=== PATIENT | female | born 1955 | race Caucasian/White ===

== ENCOUNTER 2017-07-25 19:24 | Emergency (ER) | payer OTHER ==
[2017-07-25 19:34] VITALS: BP 129/81; PULSE 75; TEMP 98.5; BMI 26.4
--- NOTE | 2017-07-25 19:37 | PDOC ---
Rapid Medical Evaluation Time Seen by Provider: 07/25/17 19:30 Medical Evaluation: 07/25/17 19:30 I have performed a brief in-person evaluation of this patient. The patient presents with a chief complaint of: R flank pain w/ nausea x several days. H/o DM, HTN, HLD, anxiety Pertinent physical exam findings:Stable w/ +ttp to R flank I have ordered the following:labs The patient will proceed to the ED for further evaluation. Discharge Disposition - Diagnosis Right flank pain - Referrals - Patient Instructions - Post Discharge Activity
[2017-07-25 20:03] LABS: BASO % 0.5 % (0-2.0); EOS % 2.5 % (0-4.5); HEMATOCRIT 33.6 % (32.4-45.2); HEMOGLOBIN 11.6 GM/dL (10.7-15.3); LYMPH % 44.6 % (8-40); MCH 32.4 pg (25.7-33.7); MCHC 34.5 g/dl (32.0-36.0); MEAN CELL VOLUME 93.9 fl (80-96); MEAN PLT VOLUME 7.7 fl (7.5-11.1); MONO % 6.3 % (3.8-10.2); NEUT % 46.1 % (42.8-82.8); PLATELET COUNT 184 K/MM3 (134-434); RBC 3.58 M/mm3 (3.60-5.2); RDW 12.7 % (11.6-15.6); WHITE BLOOD COUNT 6.7 K/mm3 (4.0-10.0)
[2017-07-25 20:14] LABS: URINE APPEARANCE CLOUDY; URINE BILIRUBIN NEGATIVE (<2.0 mg/dL); URINE BLOOD 1+ (NEGATIVE); URINE COLOR YELLOW; URINE GLUCOSE (UA) NEGATIVE (NEGATIVE); URINE KETONE NEGATIVE (NEGATIVE); URINE NITRITE NEGATIVE (NEGATIVE); URINE PROTEIN NEGATIVE (NEGATIVE); URINE UROBILINOGEN NEGATIVE mg/dL (0.2-1.0)
[2017-07-25 20:22] LABS: URINE LEUK ESTERASE 3+ (NEGATIVE)
[2017-07-25 20:32] LABS: EPI CELLS MODERATE /HPF (FEW); URINE MUCUS RARE
[2017-07-25 20:56] LABS: ALBUMIN 4.3 g/dl (3.4-5.0); ALK PHOS 65 U/L (45-117); ANION GAP 5 (8-16); BILIRUBIN,TOTAL 0.2 mg/dL (0.2-1.0); BLOOD UREA NITROGEN 15 mg/dL (7-18); CALCIUM 8.4 mg/dL (8.5-10.1); CHLORIDE 106 mmol/L (98-107); CO2 26 mmol/L (21-32); CREATININE 0.7 mg/dL (0.55-1.02); GLUCOSE,RANDOM 189 mg/dL (74-106); POTASSIUM 4.5 mmol/L (3.5-5.1); SGOT/AST 12 U/L (15-37); SGPT/ALT 22 U/L (12-78); SODIUM 137 mmol/L (136-145); TOT PROT 7.6 g/dl (6.4-8.2)
--- NOTE | 2017-07-25 21:18 | PDOC ---
History of Present Illness - General History Source: Patient <Prieto Barboza - Last Filed: 07/25/17 21:22> - General History Source: Patient Exam Limitations: No Limitations - History of Present Illness Initial Comments: 07/25/17 21:27 The patient is a 62 year old female with a significant PMH of HTN diabetes, and hyperlipidemia who presents to the emergency department with right flank pain beginning approximately 4 days ago. The patient reports also notes associated nausea and mild dysuria with her right flank pain. She denies taking any medications for pain. The patient denies fevers or chills. She denies hematuria. The patient denies vomit, diarrhea and constipation. Denies chest pain, shortness of breath, headache and dizziness. Denies urinary frequency and urgency. Allergies: Amoxicillin Past surgical history: None reported. Social history: No reported cigarette, alcohol, or drug use. PCP: None reported. <Jae Linares - Last Filed: 07/25/17 21:27> - General Chief Complaint: Pain Stated Complaint: PAIN Time Seen by Provider: 07/25/17 19:30 Past History - Past Medical History COPD: No Diabetes: Yes HTN: Yes Hypercholesterolemia: Yes Psychiatric Problems: Yes - Suicide/Smoking/Psychosocial Hx Smoking History: Never smoked <KrismorganPrieto - Last Filed: 07/25/17 21:22> <Jae Linares - Last Filed: 07/25/17 21:27> - Past Medical History Allergies/Adverse Reactions: Allergies Allergy/AdvReac Type Severity Reaction Status Date / Time amoxicillin AdvReac Verified 07/25/17 19:34 Home Medications: Ambulatory Orders levoFLOXacin [Levaquin -] 500 mg PO DAILY #7 tablet 07/25/17 Review of Systems - Review of Systems Able to Perform ROS?: Yes Comments:: 07/25/17 21:27 CONSTITUTIONAL: Absent: fever, chills, diaphoresis, generalized weakness, malaise, loss of appetite HEENT: Absent: rhinorrhea, nasal congestion, throat pain, throat swelling, difficulty swallowing, mouth swelling, ear pain, eye pain, visual Changes CARDIOVASCULAR: Absent: chest pain, syncope, palpitations, irregular heart rate, lightheadedness , peripheral edema RESPIRATORY: Absent: cough, shortness of breath, dyspnea with exertion, orthopnea, wheezing, stridor, hemoptysis GASTROINTESTINAL: (+) Nausea. Absent: abdominal pain, abdominal distension, vomiting, diarrhea, constipation, melena, hematochezia GENITOURINARY: (+) Mild dysuria. Absent: dysuria, frequency, urgency, hesitancy, hematuria, flank pain, genital pain MUSCULOSKELETAL: (+) Right flank pain. Absent: myalgia, arthralgia, joint swelling SKIN: Absent: rash, itching, pallor HEMATOLOGIC/IMMUNOLOGIC: Absent: easy bleeding, easy bruising, lymphadenopathy, frequent infections ENDOCRINE: Absent: unexplained weight gain, unexplained weight loss, heat intolerance, cold intolerance NEUROLOGIC: Absent: headache, focal weakness or paresthesias, dizziness, unsteady gait, seizure, mental status changes, bladder or bowel incontinence PSYCHIATRIC: Absent: anxiety, depression, suicidal or homicidal ideation, hallucinations. <Jae Linares - Last Filed: 07/25/17 21:27> *Physical Exam - Vital Signs Last Vital Signs Temp Pulse Resp BP Pulse Ox 98.5 F 75 18 129/81 99 07/25/17 19:31 07/25/17 19:31 07/25/17 19:31 07/25/17 19:31 07/25/17 19:31 <Prieto Barboza - Last Filed: 07/25/17 21:22> - Vital Signs Last Vital Signs Temp Pulse Resp BP Pulse Ox 98.5 F 75 18 129/81 99 07/25/17 19:31 07/25/17 19:31 07/25/17 19:31 07/25/17 19:31 07/25/17 19:31 - Physical Exam Comments: 07/25/17 21:27 GENERAL: Well developed, well nourished. Awake and alert. No acute distress. HEENT: Normocephalic, atraumatic. PERRLA, EOMI. No conjunctival pallor. Sclera are non- icteric. Moist mucous membranes. Oropharynx is clear. NECK: Supple. Full ROM. No JVD. Carotid pulses 2+ and symmetric, without bruits. No thyromegaly. No lymphadenopathy. CARDIOVASCULAR: Regular rate and rhythm. No murmurs, rubs, or gallops. Distal pulses are 2+ and symmetric. PULMONARY: No evidence of respiratory distress. Lungs clear to auscultation bilaterally. No wheezing, rales or rhonchi. ABDOMINAL: Soft. Non-tender. Non-distended. No rebound or guarding. No organomegaly. Normoactive bowel sounds. MUSCULOSKELETAL: (+) Mild right sided CVA tenderness Normal range of motion at all joints. No bony deformities or tenderness. EXTREMITIES: No cyanosis. No clubbing. No edema. No calf tenderness. SKIN: Warm and dry. Normal capillary refill. No rashes. No jaundice. NEUROLOGICAL: Alert, awake, appropriate. Cranial nerves 2-12 intact. No deficits to light touch and temperature in face, upper extremities and lower extremities. No motor deficits in the in face, upper extremities and lower extremities. Normoreflexic in the upper and lower extremities. Normal speech. Toes are downgoing bilaterally. Gait is normal without ataxia. PSYCHIATRIC: Cooperative. Good eye contact. Appropriate mood and affect. <Jae Linares - Last Filed: 07/25/17 21:27> ED Treatment Course - LABORATORY CBC & Chemistry Diagram: 07/25/17 19:45 07/25/17 19:45 - ADDITIONAL ORDERS Additional order review: Laboratory Results 07/25/17 07/25/17 20:02 19:45 Sodium 137 Potassium 4.5 Chloride 106 Carbon Dioxide 26 Anion Gap 5 L BUN 15 Creatinine 0.7 Creat Clearance w eGFR > 60 Random Glucose 189 H Calcium 8.4 L Total Bilirubin 0.2 AST 12 L ALT 22 Alkaline Phosphatase 65 Total Protein 7.6 Albumin 4.3 Urine Color Yellow Urine Appearance Cloudy Urine pH 5.0 Ur Specific [place] 1.016 Urine Protein Negative Urine Glucose (UA) Negative Urine Ketones Negative Urine Blood 1+ H Urine Nitrite Negative Urine Bilirubin Negative Urine Urobilinogen Negative Ur Leukocyte Esterase 3+ H Urine WBC (Auto) 120 Urine RBC (Auto) 6 Ur Epithelial Cells Moderate Urine Mucus Rare 07/25/17 19:45 RBC 3.58 L MCV 93.9 MCHC 34.5 RDW 12.7 MPV 7.7 Neutrophils % 46.1 Lymphocytes % 44.6 H Monocytes % 6.3 Eosinophils % 2.5 Basophils % 0.5 <Prieto Barboza - Last Filed: 07/25/17 21:22> - LABORATORY CBC & Chemistry Diagram: 07/25/17 19:45 07/25/17 19:45 - ADDITIONAL ORDERS Additional order review: Laboratory Results 07/25/17 07/25/17 20:02 19:45 Sodium 137 Potassium 4.5 Chloride 106 Carbon Dioxide 26 Anion Gap 5 L BUN 15 Creatinine 0.7 Creat Clearance w eGFR > 60 Random Glucose 189 H Calcium 8.4 L Total Bilirubin 0.2 AST 12 L ALT 22 Alkaline Phosphatase 65 Total Protein 7.6 Albumin 4.3 Urine Color Yellow Urine Appearance Cloudy Urine pH 5.0 Ur Specific [place] 1.016 Urine Protein Negative Urine Glucose (UA) Negative Urine Ketones Negative Urine Blood 1+ H Urine Nitrite Negative Urine Bilirubin Negative Urine Urobilinogen Negative Ur Leukocyte Esterase 3+ H Urine WBC (Auto) 120 Urine RBC (Auto) 6 Ur Epithelial Cells Moderate Urine Mucus Rare 07/25/17 19:45 RBC 3.58 L MCV 93.9 MCHC 34.5 RDW 12.7 MPV 7.7 Neutrophils % 46.1 Lymphocytes % 44.6 H Monocytes % 6.3 Eosinophils % 2.5 Basophils % 0.5 <Jae Linares - Last Filed: 07/25/17 21:27> Medical Decision Making - Medical Decision Making 07/25/17 21:22 Dr. Barboza: The scribe's documentation has been prepared under my direction and personally reviewed by me in its entirery. I confirm that the note above accurately reflects all work, treatment, procedures, and medical decision making performed by me. Pt found to have UTI. Pt afebrile. Rx Levaquin 500mg PO QD Rx sent to pharmacy <Prieto Barboza - Last Filed: 07/25/17 21:22> *DC/Admit/Observation/Transfer - Discharge Dispostion Admit: No <Prieto Barboza - Last Filed: 07/25/17 21:22> - Attestations Scribe Attestion: 07/25/17 21:27 Documentation prepared by Jae Linares, acting as medical representative for Prieto Barboza DO. <Jae Linares - Last Filed: 07/25/17 21:27> Diagnosis at time of Disposition: Right flank pain, UTI (urinary tract infection) - Discharge Dispostion Disposition: HOME Condition at time of disposition: Stable - Prescriptions Prescriptions: levoFLOXacin [Levaquin -] 500 mg PO DAILY #7 tablet - Referrals Referrals: Deborah Escalona MD [Staff Physician] - Sergo Mota MD [Staff Physician] - - Patient Instructions Printed Discharge Instructions: DI for Urinary Tract Infection (UTI)
== END 2017-07-25 21:42 | disposition home or self-care (01) ==
LOC: JER 19:24
DX: R10.31 Right lower quadrant pain (principal); N39.0 Urinary tract infection, site not specified; I10 Essential (primary) hypertension; E11.9 Type 2 diabetes mellitus without complications; E78.5 Hyperlipidemia, unspecified
CPT/HCPCS: 36415; 80053; 81003; 81015; 85025; 99282-25

== ENCOUNTER 2021-06-11 04:45 | Inpatient (IN) | payer OTHER ==
[2021-06-11] MEDS ORDERED: ONDANSETRON 4 MG/2 ML VIAL IVPUSH ONE (07:40)
[2021-06-11] MEDS ORDERED: SODIUM CHLORIDE 0.9% 500 ML INFUS.BAG IV ONE ×2 (07:41→10:04)
[2021-06-11] MEDS ORDERED: FAMOTIDINE 20 MG/50 ML IVPB 20 MG/50 ML MG IVPB ONE ×2 (07:46→07:52)
[2021-06-11] MEDS ORDERED: ONDANSETRON 4 MG/2 ML VIAL ONE (07:52)
[2021-06-11 09:26] LABS: EPI CELLS >36 /uL (0-25.1); HYALINE CASTS 0 /uL (0-3.1); URINE APPEARANCE CLEAR; URINE BACTERIA 287 /uL (0-1359); URINE BILIRUBIN NEGATIVE (NEGATIVE); URINE COLOR YELLOW; URINE GLUCOSE (UA) TRACE (NEGATIVE); URINE KETONE TRACE (NEGATIVE); URINE LEUK ESTERASE 1+ (NEGATIVE); URINE NITRITE NEGATIVE (NEGATIVE); URINE PROTEIN TRACE (NEGATIVE); URINE RBC 12 /uL (0-23.9); URINE UROBILINOGEN 0.2 mg/dL (0.2-1.0); URINE WBC 60 /uL (0-25.8)
[2021-06-11 09:28] LABS: BASO % 0.4 % (0-2.0); EOS % 0.8 % (0-4.5); HEMATOCRIT 35.3 % (32.4-45.2); HEMOGLOBIN 12.4 GM/dL (10.7-15.3); LYMPH % 23.5 % (8-40); MCH 32.3 pg (25.7-33.7); MEAN CELL VOLUME 92.4 fl (80-96); MEAN PLT VOLUME 7.3 fl (7.5-11.1); MONO % 5.9 % (3.8-10.2); NEUT % 69.4 % (42.8-82.8); PLATELET COUNT 206 10^3/uL (134-434); RBC 3.82 M/mm3 (3.60-5.2); RDW 13.1 % (11.6-15.6); WHITE BLOOD COUNT 5.8 K/mm3 (4.0-10.0)
[2021-06-11 09:59] LABS: BLOOD UREA NITROGEN 12.8 mg/dL (7-18)
[2021-06-11 10:00] LABS: ALBUMIN 4.4 g/dl (3.4-5.0)
[2021-06-11 10:02] LABS: CREATININE 0.9 mg/dL (0.55-1.3)
[2021-06-11 10:04] LABS: BILIRUBIN,TOTAL 0.4 mg/dL (0.2-1); TOT PROT 8.5 g/dl (6.4-8.2)
[2021-06-11 16:38] LABS: CHLORIDE 100 mmol/L (98-107); SODIUM 126 mmol/L (136-145)
[2021-06-11 16:40] LABS: ALBUMIN 3.6 g/dl (3.4-5.0); BLOOD UREA NITROGEN 10.8 mg/dL (7-18); CALCIUM 8.2 mg/dL (8.5-10.1); CO2 18 mmol/L (21-32); GLUCOSE,RANDOM 173 mg/dL (74-106)
[2021-06-11 16:44] LABS: CREATININE 0.8 mg/dL (0.55-1.3); SGOT/AST 24 U/L (15-37); SGPT/ALT 25 U/L (13-61)
[2021-06-11 16:46] LABS: ALK PHOS 77 U/L (45-117); BILIRUBIN,TOTAL 0.4 mg/dL (0.2-1)
[2021-06-11 16:49] LABS: ANION GAP 8 MMOL/L (8-16)
[2021-06-11] MEDS ORDERED: SODIUM ZIRCONIUM CYCLOSILICATE (LOKELMA) 5 GM PACKET ONE (18:33)
[2021-06-11] MEDS: SODIUM ZIRCONIUM CYCLOSILICATE (LOKELMA) 5 GM PACKET PO SCH (18:47)
[2021-06-11] MEDS: SODIUM CHLORIDE 1,000 ML IV SCH (18:47)
[2021-06-12 01:52] VITALS: BMI 24.7
[2021-06-12] MEDS: INSULIN SLIDING SCALE (NOVOLOG) 1 VIAL SQ SCH ×4 (07:24→21:18)
[2021-06-12 09:33] LABS: BASO % 0.5 % (0-2.0); EOS % 2.1 % (0-4.5); HEMATOCRIT 33.1 % (32.4-45.2); HEMOGLOBIN 11.7 GM/dL (10.7-15.3); LYMPH % 37.8 % (8-40); MCH 32.4 pg (25.7-33.7); MCHC 35.4 g/dl (32.0-36.0); MEAN CELL VOLUME 91.5 fl (80-96); MEAN PLT VOLUME 7.1 fl (7.5-11.1); MONO % 8.7 % (3.8-10.2); NEUT % 50.9 % (42.8-82.8); PLATELET COUNT 204 10^3/uL (134-434); RBC 3.61 M/mm3 (3.60-5.2); RDW 12.9 % (11.6-15.6); WHITE BLOOD COUNT 4.3 K/mm3 (4.0-10.0)
[2021-06-12 09:52] LABS: CREATININE 0.9 mg/dL (0.55-1.3)
[2021-06-12 09:54] LABS: BILIRUBIN,TOTAL 0.4 mg/dL (0.2-1); TOT PROT 7.4 g/dl (6.4-8.2)
[2021-06-12 09:58] LABS: BLOOD UREA NITROGEN 11.4 mg/dL (7-18)
[2021-06-12] MEDS: SODIUM ZIRCONIUM CYCLOSILICATE (LOKELMA) 5 GM PACKET PO SCH (10:02)
[2021-06-12] MEDS: HEPARIN NA (PORCINE) 5,000 UNITS/ML 1ML VIAL SQ SCH ×2 (10:03→21:18)
[2021-06-12 10:07] LABS: CALCIUM 9.3 mg/dL (8.5-10.1)
[2021-06-12 10:08] LABS: ALBUMIN 3.9 g/dl (3.4-5.0)
[2021-06-12] MEDS ORDERED: INSULIN (NOVOLOG) ASPART 100 UNITS/ML 10ML VIAL ONE (12:02)
[2021-06-12] MEDS: SODIUM CHLORIDE 1,000 ML IV SCH (15:08)
[2021-06-13] MEDS: INSULIN SLIDING SCALE (NOVOLOG) 1 VIAL SQ SCH ×2 (06:22→11:21)
[2021-06-13] MEDS: HEPARIN NA (PORCINE) 5,000 UNITS/ML 1ML VIAL SQ SCH (09:15)
[2021-06-13] MEDS ORDERED: INSULIN (NOVOLOG) ASPART 100 UNITS/ML 10ML VIAL ONE (11:21)
[2021-06-13 14:02] VITALS: BP 141/78; PULSE 73; TEMP 98.6
== END 2021-06-13 15:01 | disposition home or self-care (01) | DRG 422 ==
LOC: JER 04:45 → JERBED 12:31 → J6S 20:40
PROVIDERS: ADMIT Internal Medicine; ATTEND Internal Medicine
DX: E87.1 Hypo-osmolality and hyponatremia (principal); R11.2 Nausea with vomiting, unspecified; R63.0 Anorexia; R10.31 Right lower quadrant pain; R10.32 Left lower quadrant pain; E11.9 Type 2 diabetes mellitus without complications; E03.9 Hypothyroidism, unspecified; E78.00 Pure hypercholesterolemia, unspecified; I10 Essential (primary) hypertension; N28.1 Cyst of kidney, acquired; E86.1 Hypovolemia; Z68.24 Body mass index [BMI] 24.0-24.9, adult
CPT/HCPCS: 36415; 74177-TC; 80053; 81003; 82436; 82533; 82570; 82962; 83690; 83930; 83935; 84132; 84133; 84300; 84439; 84443; 84484; 85025; 87086; 93005; 93010; 99284-25; C9803-CS; J1644; Q9967; U0003; U0005

== ENCOUNTER 2021-07-02 15:50 | Inpatient (IN) | payer OTHER ==
[2021-07-02 17:56] LABS: BASO % 0.4 % (0-2.0); EOS % 2.3 % (0-4.5); HEMATOCRIT 31.6 % (32.4-45.2); HEMOGLOBIN 10.9 GM/dL (10.7-15.3); LYMPH % 32.4 % (8-40); MCH 31.4 pg (25.7-33.7); MCHC 34.3 g/dl (32.0-36.0); MEAN CELL VOLUME 91.6 fl (80-96); MEAN PLT VOLUME 6.9 fl (7.5-11.1); MONO % 6.6 % (3.8-10.2); NEUT % 58.3 % (42.8-82.8); PLATELET COUNT 242 10^3/uL (134-434); RBC 3.45 M/mm3 (3.60-5.2); WHITE BLOOD COUNT 6.3 K/mm3 (4.0-10.0)
[2021-07-02 18:18] LABS: BLOOD UREA NITROGEN 10.8 mg/dL (7-18); CALCIUM 8.8 mg/dL (8.5-10.1)
[2021-07-02 18:19] LABS: ALBUMIN 3.8 g/dl (3.4-5.0); MAGNESIUM 1.6 mg/dL (1.8-2.4)
[2021-07-02 18:23] LABS: BILIRUBIN,TOTAL 0.2 mg/dL (0.2-1); CREATININE 0.9 mg/dL (0.55-1.3); TOT PROT 7.4 g/dl (6.4-8.2)
[2021-07-02] MEDS ORDERED: SODIUM CHLORIDE 0.9% 500 ML INFUS.BAG IV ONE (18:41)
[2021-07-02] MEDS ORDERED: MAG HYDROX/AL HYDROX/SIMETH 30 ML UNIT-DOSE CUP PO ONE (18:44)
[2021-07-02] MEDS ORDERED: PANTOPRAZOLE SODIUM 40 MG VIAL IVPUSH ONE (18:44)
[2021-07-02] MEDS ORDERED: FAMOTIDINE 20 MG/50 ML IVPB 20 MG/50 ML MG IVPB ONE ×2 (18:44→19:18)
[2021-07-02] MEDS ORDERED: ACETAMINOPHEN 1000 MG/100 ML BAG IVPB ONE (18:45)
[2021-07-02] MEDS ORDERED: ASPIRIN 81 MG CHEWABLE TABLETS PO ONE (18:45)
[2021-07-02] MEDS ORDERED: ASPIRIN 81 MG CHEWABLE TABLETS ONE (19:18)
[2021-07-02] MEDS ORDERED: MAG HYDROX/AL HYDROX/SIMETH 30 ML UNIT-DOSE CUP ONE (19:18)
[2021-07-02] MEDS ORDERED: ACETAMINOPHEN INJECTION 100 ML IVPB ONE (19:18)
[2021-07-02] MEDS ORDERED: PANTOPRAZOLE SODIUM 40 MG VIAL ONE (19:18)
[2021-07-02 20:00] LABS: EPI CELLS >36 /uL (0-25.1); HYALINE CASTS 1 /uL (0-3.1); PH,URINE 7.5 (5.0-8.0); URINE APPEARANCE CLEAR; URINE BACTERIA 239 /uL (0-1359); URINE BILIRUBIN NEGATIVE (NEGATIVE); URINE COLOR YELLOW; URINE GLUCOSE (UA) NEGATIVE (NEGATIVE); URINE KETONE NEGATIVE (NEGATIVE); URINE LEUK ESTERASE 2+ (NEGATIVE); URINE NITRITE NEGATIVE (NEGATIVE); URINE PROTEIN NEGATIVE (NEGATIVE); URINE RBC 6 /uL (0-23.9); URINE UROBILINOGEN 0.2 mg/dL (0.2-1.0); URINE WBC 94 /uL (0-25.8)
[2021-07-02] MEDS ORDERED: CEFTRIAXONE 1 GM in DEXTROSE 5%-WATER - 100 ML IVPB ONE (20:23)
[2021-07-02] MEDS ORDERED: CEFTRIAXONE 1 GM/50 ML BAG ONE (22:17)
[2021-07-03 03:12] VITALS: BMI 24.7
[2021-07-03] MEDS: LEVOTHYROXINE NA 25 MCG TABLET (FP) PO SCH (06:27)
[2021-07-03] MEDS: INSULIN SLIDING SCALE (NOVOLOG) 1 VIAL SQ SCH ×4 (06:27→22:14)
[2021-07-03 09:13] LABS: BASO % 0.5 % (0-2.0); EOS % 2.4 % (0-4.5); HEMATOCRIT 33.5 % (32.4-45.2); HEMOGLOBIN 11.5 GM/dL (10.7-15.3); LYMPH % 31.4 % (8-40); MCH 31.6 pg (25.7-33.7); MCHC 34.4 g/dl (32.0-36.0); MEAN CELL VOLUME 91.9 fl (80-96); MEAN PLT VOLUME 6.8 fl (7.5-11.1); MONO % 6.5 % (3.8-10.2); NEUT % 59.2 % (42.8-82.8); PLATELET COUNT 251 10^3/uL (134-434); RBC 3.65 M/mm3 (3.60-5.2); RDW 12.3 % (11.6-15.6); WHITE BLOOD COUNT 6.2 K/mm3 (4.0-10.0)
[2021-07-03] MEDS: metFORMIN HCL 500 MG TABLET (FP) PO SCH ×2 (09:34→22:14)
[2021-07-03] MEDS: ENALAPRIL MALEATE 10 MG TABLET PO SCH (09:34)
[2021-07-03] MEDS: PANTOPRAZOLE 40 MG TABLET PO SCH (09:34)
[2021-07-03] MEDS: sitaGLIPtin PHOSPHATE 50 MG TABLET PO SCH (09:34)
[2021-07-03] MEDS: carBAMazepine 200 MG TABLET PO SCH ×2 (09:34→22:14)
[2021-07-03] MEDS: HEPARIN NA (PORCINE) 5,000 UNITS/ML 1ML VIAL SQ SCH ×2 (09:34→22:14)
[2021-07-03 09:35] LABS: CALCIUM 8.6 mg/dL (8.5-10.1)
[2021-07-03 09:36] LABS: ALBUMIN 3.7 g/dl (3.4-5.0); BLOOD UREA NITROGEN 9.4 mg/dL (7-18)
[2021-07-03 09:40] LABS: CREATININE 0.9 mg/dL (0.55-1.3)
[2021-07-03 09:42] LABS: BILIRUBIN,TOTAL 0.3 mg/dL (0.2-1); TOT PROT 7.7 g/dl (6.4-8.2)
[2021-07-03] MEDS ORDERED: ACETAMINOPHEN 325 MG TABLET (FP) ONE (13:04)
[2021-07-03] MEDS ORDERED: ACETAMINOPHEN 325 MG TABLET (FP) PO PRN (13:07)
[2021-07-03] MEDS: ATORVASTATIN CA 40 MG TABLET (FP) PO SCH (22:14)
[2021-07-04] MEDS: INSULIN SLIDING SCALE (NOVOLOG) 1 VIAL SQ SCH ×4 (06:51→21:37)
[2021-07-04] MEDS: LEVOTHYROXINE NA 25 MCG TABLET (FP) PO SCH (06:52)
[2021-07-04] MEDS: sitaGLIPtin PHOSPHATE 50 MG TABLET PO SCH (10:19)
[2021-07-04] MEDS: PANTOPRAZOLE 40 MG TABLET PO SCH (10:19)
[2021-07-04] MEDS: carBAMazepine 200 MG TABLET PO SCH ×2 (10:19→21:37)
[2021-07-04] MEDS: metFORMIN HCL 500 MG TABLET (FP) PO SCH ×2 (10:19→21:37)
[2021-07-04] MEDS: HEPARIN NA (PORCINE) 5,000 UNITS/ML 1ML VIAL SQ SCH ×2 (10:19→21:36)
[2021-07-04] MEDS: ENALAPRIL MALEATE 10 MG TABLET PO SCH (10:21)
[2021-07-04] MEDS: ATORVASTATIN CA 40 MG TABLET (FP) PO SCH (21:37)
[2021-07-05] MEDS: INSULIN SLIDING SCALE (NOVOLOG) 1 VIAL SQ SCH ×3 (06:04→17:11)
[2021-07-05] MEDS: LEVOTHYROXINE NA 25 MCG TABLET (FP) PO SCH (06:04)
[2021-07-05] MEDS: PANTOPRAZOLE 40 MG TABLET PO SCH (09:11)
[2021-07-05] MEDS: HEPARIN NA (PORCINE) 5,000 UNITS/ML 1ML VIAL SQ SCH (09:11)
[2021-07-05] MEDS: carBAMazepine 200 MG TABLET PO SCH (09:11)
[2021-07-05] MEDS: sitaGLIPtin PHOSPHATE 50 MG TABLET PO SCH (09:11)
[2021-07-05] MEDS: metFORMIN HCL 500 MG TABLET (FP) PO SCH (09:11)
[2021-07-05] MEDS: ENALAPRIL MALEATE 10 MG TABLET PO SCH (09:12)
[2021-07-05 09:35] LABS: BASO % 0.5 % (0-2.0); EOS % 1.6 % (0-4.5); HEMATOCRIT 32.5 % (32.4-45.2); HEMOGLOBIN 11.5 GM/dL (10.7-15.3); LYMPH % 19.7 % (8-40); MCH 31.9 pg (25.7-33.7); MCHC 35.3 g/dl (32.0-36.0); MEAN CELL VOLUME 90.3 fl (80-96); MONO % 6.5 % (3.8-10.2); NEUT % 71.7 % (42.8-82.8); PLATELET COUNT 245 10^3/uL (134-434); RDW 13.1 % (11.6-15.6); WHITE BLOOD COUNT 5.3 K/mm3 (4.0-10.0)
[2021-07-05 09:52] LABS: CALCIUM 8.3 mg/dL (8.5-10.1)
[2021-07-05 09:53] LABS: ALBUMIN 3.6 g/dl (3.4-5.0)
[2021-07-05 09:56] LABS: CREATININE 0.9 mg/dL (0.55-1.3)
[2021-07-05 09:58] LABS: BILIRUBIN,TOTAL 0.4 mg/dL (0.2-1); TOT PROT 7.3 g/dl (6.4-8.2)
[2021-07-05 15:20] VITALS: BP 137/75; PULSE 75; TEMP 98.4
[2021-07-05] MEDS ORDERED: SODIUM CHLORIDE 1 GM TABLET PO SCH (17:00)
== END 2021-07-05 18:49 | disposition home or self-care (01) | DRG 425 ==
LOC: JER 15:50 → JERBED 18:41 → J4S 07-03 02:21 → OBSVTOIN 07-03 03:45
PROVIDERS: ADMIT Internal Medicine; ATTEND Internal Medicine
DX: E87.1 Hypo-osmolality and hyponatremia (principal); U07.1 COVID-19; Z79.84 Long term (current) use of oral hypoglycemic drugs; E87.5 Hyperkalemia; J44.1 Chronic obstructive pulmonary disease with (acute) exacerbation; R07.89 Other chest pain; Z79.4 Long term (current) use of insulin; E11.9 Type 2 diabetes mellitus without complications; N39.0 Urinary tract infection, site not specified; E78.5 Hyperlipidemia, unspecified; I10 Essential (primary) hypertension; E03.9 Hypothyroidism, unspecified; R42 Dizziness and giddiness; N28.1 Cyst of kidney, acquired
CPT/HCPCS: 36415; 71045-TC-FY; 80053; 81003; 82728; 82962; 83690; 83735; 84100; 84484; 85025; 85379; 86140; 87086; 93005; 93010; 99285-25; C9803-CS; G0378; J1644; U0003; U0005

== ENCOUNTER 2023-09-29 01:00 | Inpatient (IN) | payer OTHER ==
[2023-09-29 01:50] LABS: BASO % 0.5 % (0-2.0); EOS % 2.2 % (0-4.5); HEMATOCRIT 31.9 % (32.4-45.2); HEMOGLOBIN 11.4 GM/dL (10.7-15.3); LYMPH % 40.4 % (8-40); MCH 32.4 pg (25.7-33.7); MCHC 35.8 g/dl (32.0-36.0); MEAN CELL VOLUME 90.5 fl (80-96); MEAN PLT VOLUME 6.5 fl (7.5-11.1); MONO % 7.7 % (3.8-10.2); NEUT % 49.2 % (42.8-82.8); PLATELET COUNT 203 10^3/uL (134-434); RBC 3.52 M/mm3 (3.60-5.2); RDW 12.8 % (11.6-15.6); WHITE BLOOD COUNT 7.4 K/mm3 (4.0-10.0)
[2023-09-29] MEDS ORDERED: ACETAMINOPHEN INJECTION 100 ML IVPB ONE (01:50)
[2023-09-29] MEDS ORDERED: ONDANSETRON 4 MG/2 ML VIAL ONE (01:50)
[2023-09-29] MEDS: ACETAMINOPHEN 1000 MG/100 ML BAG IVPB ONE (01:58)
[2023-09-29] MEDS: SODIUM CHLORIDE 0.9% 500 ML INFUS.BAG IV ONE ×2 (01:58→04:06)
[2023-09-29] MEDS: ONDANSETRON 4 MG/2 ML VIAL IVPUSH ONE (01:59)
[2023-09-29 02:09] LABS: EPI CELLS 13 /uL (0-25.1); HYALINE CASTS 0 /uL (0-3.1); PH,URINE 7.5 (5.0-8.0); URINE APPEARANCE CLEAR; URINE BACTERIA 64 /uL (0-1359); URINE BILIRUBIN NEGATIVE (NEGATIVE); URINE COLOR YELLOW; URINE GLUCOSE (UA) NEGATIVE (NEGATIVE); URINE KETONE NEGATIVE (NEGATIVE); URINE LEUK ESTERASE 1+ (NEGATIVE); URINE NITRITE NEGATIVE (NEGATIVE); URINE PROTEIN NEGATIVE (NEGATIVE); URINE RBC 7 /uL (0-23.9); URINE WBC 42 /uL (0-25.8)
[2023-09-29 02:48] LABS: INR 0.95 (0.83-1.09); PROTHROMBIN TIME (PATIENT) 10.7 SEC (9.7-13.0)
[2023-09-29 02:49] LABS: ALBUMIN 3.9 g/dl (3.4-5.0); CALCIUM 8.9 mg/dL (8.5-10.1)
[2023-09-29 02:50] LABS: MAGNESIUM 1.2 mg/dL (1.8-2.4)
[2023-09-29 02:51] LABS: ACTIVATED PTT 30.8 SECONDS (25.2-36.5)
[2023-09-29 02:52] LABS: CREATININE 1.2 mg/dL (0.55-1.3)
[2023-09-29 02:54] LABS: BILIRUBIN,TOTAL 0.3 mg/dL (0.2-1); TOT PROT 7.4 g/dl (6.4-8.2)
[2023-09-29] MEDS ORDERED: MAGNESIUM SULFATE IN WATER 2 GM/50 ML IVPB IVPB ONE (03:04)
[2023-09-29] MEDS: MAGNESIUM SULF 50% (8.12 MEQ/2 ML-1 GM VIAL) IVPB ONE ×2 (03:15→14:22)
[2023-09-29 03:16] LABS: LACTIC ACID 3.4 mmol/L (0.4-2.0)
[2023-09-29 05:27] LABS: LACTIC ACID 2.9 mmol/L (0.4-2.0)
[2023-09-29 07:24] LABS: LACTIC ACID 3.7 mmol/L (0.4-2.0)
[2023-09-29 09:35] VITALS: BMI 25.1
[2023-09-29 10:16] LABS: POTASSIUM 4.4 mmol/L (3.5-5.1)
[2023-09-29 10:17] LABS: CALCIUM 8.7 mg/dL (8.5-10.1)
[2023-09-29 10:18] LABS: BLOOD UREA NITROGEN 19.1 mg/dL (7-18)
[2023-09-29 10:21] LABS: CREATININE 1.1 mg/dL (0.55-1.3)
[2023-09-29 10:25] LABS: LACTIC ACID 3.1 mmol/L (0.4-2.0)
[2023-09-29 11:55] LABS: LACTIC ACID 2.4 mmol/L (0.4-2.0)
[2023-09-29] MEDS: PANTOPRAZOLE 40 MG TABLET PO SCH (12:29)
[2023-09-29] MEDS: DEXTROSE 5%-NORMAL SALINE 1,000 ML IV SCH (13:57)
[2023-09-29] MEDS ORDERED: ONDANSETRON 4 MG/2 ML VIAL IVPB PRN (14:34)
[2023-09-29] MEDS: LIPASE/PROTEASE/AMYLASE 36,000 UNIT CAPSULE PO SCH (17:43)
[2023-09-29] MEDS: SIMETHICONE 80 MG TAB.CHEW (FP) PO SCH (18:27)
[2023-09-29] MEDS: BISACODYL 5 MG TABLET.DR (FP) PO SCH (21:32)
[2023-09-29] MEDS: carBAMazepine 200 MG TABLET PO SCH (21:32)
[2023-09-29] MEDS: RIFAXIMIN 550 MG TABLET PO SCH (21:32)
[2023-09-29] MEDS: ATORVASTATIN CA 40 MG TABLET (FP) PO SCH (21:32)
[2023-09-30] MEDS: metFORMIN HCL 500 MG TABLET (FP) PO SCH (06:07)
[2023-09-30] MEDS: LEVOTHYROXINE NA 25 MCG TABLET (FP) PO SCH (06:07)
[2023-09-30 08:29] LABS: BASO % 0.6 % (0-2.0); EOS % 2.3 % (0-4.5); LYMPH % 33.5 % (8-40); MCH 32.6 pg (25.7-33.7); MCHC 35.2 g/dl (32.0-36.0); MEAN CELL VOLUME 92.8 fl (80-96); MEAN PLT VOLUME 7.2 fl (7.5-11.1); MONO % 6.6 % (3.8-10.2); PLATELET COUNT 226 10^3/uL (134-434); RBC 3.66 M/mm3 (3.60-5.2); RDW 13.2 % (11.6-15.6)
[2023-09-30 08:43] LABS: POTASSIUM 4.1 mmol/L (3.5-5.1)
[2023-09-30 08:45] LABS: BLOOD UREA NITROGEN 14.7 mg/dL (7-18); MAGNESIUM 1.8 mg/dL (1.8-2.4)
[2023-09-30 08:50] LABS: BILIRUBIN,TOTAL 0.4 mg/dL (0.2-1); TOT PROT 7.5 g/dl (6.4-8.2)
[2023-09-30] MEDS: ENOXAPARIN NA (PORCINE) 40 MG/0.4 ML DISP.SYRIN SQ SCH (09:57)
[2023-09-30] MEDS: sitaGLIPtin PHOSPHATE 50 MG TABLET PO SCH (09:58)
[2023-09-30] MEDS: amLODIPine BESYLATE 5 MG TABLET (FP) PO SCH (09:58)
[2023-09-30] MEDS ORDERED: ENALAPRIL MALEATE 10 MG TABLET PO SCH (10:00)
[2023-10-01 08:20] LABS: BASO % 0.7 % (0-2.0); EOS % 3.1 % (0-4.5); HEMATOCRIT 31.6 % (32.4-45.2); HEMOGLOBIN 11.1 GM/dL (10.7-15.3); LYMPH % 33.9 % (8-40); MCH 32.5 pg (25.7-33.7); MEAN CELL VOLUME 92.9 fl (80-96); MONO % 6.4 % (3.8-10.2); NEUT % 55.9 % (42.8-82.8); PLATELET COUNT 199 10^3/uL (134-434); RBC 3.41 M/mm3 (3.60-5.2); RDW 12.6 % (11.6-15.6); WHITE BLOOD COUNT 5.3 K/mm3 (4.0-10.0)
[2023-10-01 08:33] LABS: POTASSIUM 3.9 mmol/L (3.5-5.1)
[2023-10-01 08:38] LABS: ALBUMIN 3.6 g/dl (3.4-5.0); BLOOD UREA NITROGEN 6.2 mg/dL (7-18); CALCIUM 8.6 mg/dL (8.5-10.1)
[2023-10-01 08:41] LABS: CREATININE 0.9 mg/dL (0.55-1.3)
[2023-10-01 08:43] LABS: BILIRUBIN,TOTAL 0.4 mg/dL (0.2-1); TOT PROT 6.6 g/dl (6.4-8.2)
[2023-10-02 15:27] VITALS: RESP 18
[2023-10-02 16:48] VITALS: BP 150/83; PULSE 80; TEMP 98.6
== END 2023-10-02 17:12 | disposition home or self-care (01) | DRG 425 ==
LOC: JER 01:00 → JERBED 05:26 → J4W 09:11
PROVIDERS: ADMIT Internal Medicine; ATTEND Internal Medicine
DX: E87.1 Hypo-osmolality and hyponatremia (principal); K29.60 Other gastritis without bleeding; N28.1 Cyst of kidney, acquired; E03.9 Hypothyroidism, unspecified; E83.42 Hypomagnesemia; E87.20 Acidosis, unspecified; I10 Essential (primary) hypertension; E11.9 Type 2 diabetes mellitus without complications; E78.5 Hyperlipidemia, unspecified; Z79.84 Long term (current) use of oral hypoglycemic drugs
CPT/HCPCS: 0241U-QW; 36415; 71045-TC-FY; 74177-TC; 80048; 80053; 81003; 82656; 82962; 83605; 83690; 83735; 83930; 83935; 84439; 84443; 84484; 85025; 85610; 85730; 86850; 86900; 86901; 87077; 87086; 93005; 93010; 99285-25; J0131